=== PATIENT | male | born 2000 | race African-American/Black ===

== ENCOUNTER 2021-04-17 15:43 | Emergency (ER) | payer MEDICAID ==
[~2021-04-17] VITALS: Ht 180.3 cm; Wt 72.7 kg
[2021-04-17] MEDS ORDERED: HydrOXYzine PAMOATE 25 MG CAPSULE PO ONE (18:30)
[2021-04-17 18:45] VITALS: BP 104/70
== END 2021-04-17 19:02 | disposition home or self-care (01) ==
LOC: EMS 15:45
DX: R21 Rash and other nonspecific skin eruption (principal)
CPT/HCPCS: 99283